=== PATIENT | male | born 1995 | race American Indian/Alaskan Native ===

== ENCOUNTER 2017-02-25 15:14 | Emergency (ER) | payer SELFPAY ==
[2017-02-25] MEDS ORDERED: AUGMENTIN 875 MG PO ONE (15:23)
[2017-02-25] MEDS ORDERED: NORCO 5/325 PO ONE (15:23)
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
[2017-02-25 15:25] VITALS: BP 116/62
[2017-02-25] MEDS ORDERED: XYLOCAINE 2%/EPI 1:100,000 INFILTRATI ONE (15:51)
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
== END 2017-02-25 18:11 | disposition home or self-care (01) ==
LOC: ED 15:14
DX: S01.511A Laceration without foreign body of lip, initial encounter (principal); W51.XXXA Accidental striking against or bumped into by another person, initial encounter; Y93.89 Activity, other specified; Y99.8 Other external cause status; Y92.89 Other specified places as the place of occurrence of the external cause